=== PATIENT | female | born 1945 | race Caucasian/White ===

== ENCOUNTER 2021-11-28 14:01 | Emergency (ER) | payer MEDICARE, BC, SELFPAY ==
[2021-11-28 14:08] VITALS: BP 125/74; PULSE 103; RESP 16; TEMP 36.8; O2SAT 97; BMI 34.5
--- NOTE | 2021-11-28 14:15 | CTR_ITS ---
PROCEDURE INFORMATION: Exam: CT Maxillofacial Without Contrast Exam date and time: 11/28/2021 2:59 PM Age: 76 years old Clinical indication: Injury or trauma; Blunt trauma (contusions or hematomas); Cheek bone and forehead and nose and orbit/periorbital and lip/oral cavity; Left; Upper; Patient HX: Face first fall w injuries to L side of face TECHNIQUE: Imaging protocol: Computed tomography images of the face without contrast. Radiation optimization: All CT scans at this facility use at least one of these dose optimization techniques: automated exposure control; mA and/or kV adjustment per patient size (includes targeted exams where dose is matched to clinical indication); or iterative reconstruction. COMPARISON: CT head wo con* [id number] 11/28/2021 2:56 PM RADIATION DOSE METRICS: Total DLP (mGy-cm): 764.56 FINDINGS: Orbital cavities: Orbits are normal. Globes are unremarkable. Bones/joints: No acute fracture. Paranasal sinuses: Normal. No air-fluid levels. Soft tissues: Unremarkable. CT/CT facial bones wo con* [id number] IMPRESSION: No acute findings.
--- NOTE | 2021-11-28 14:15 | CTR_ITS ---
PROCEDURE INFORMATION: Exam: CT Cervical Spine Without Contrast Exam date and time: 11/28/2021 3:02 PM Age: 76 years old Clinical indication: Injury or trauma; Blunt trauma; Patient HX: Face first fall TECHNIQUE: Imaging protocol: Computed tomography images of the cervical spine without contrast. Radiation optimization: All CT scans at this facility use at least one of these dose optimization techniques: automated exposure control; mA and/or kV adjustment per patient size (includes targeted exams where dose is matched to clinical indication); or iterative reconstruction. COMPARISON: e+1 CT facial bones wo con* [id number] 11/28/2021 2:59 PM RADIATION DOSE METRICS: Total DLP (mGy-cm): 600.89 FINDINGS: Vertebrae: Grade 1 anterolisthesis of C4 relative to C5 of 3.4 mm is likely chronic. C2-C3: No significant disc protrusion. No severe spinal canal stenosis. No significant neural foraminal narrowing. C3-C4: No significant disc protrusion. No severe spinal canal stenosis. No significant neural foraminal narrowing. C4-C5: No significant disc protrusion. No severe spinal canal stenosis. No significant neural foraminal narrowing. C5-C6: No significant disc protrusion. No severe spinal canal stenosis. No significant neural foraminal narrowing. C6-C7: No significant disc protrusion. No severe spinal canal stenosis. No significant neural foraminal narrowing. C7-T1: No significant disc protrusion. No severe spinal canal stenosis. No significant neural foraminal narrowing. Soft tissues: Unremarkable. Lungs: Lung apices are normal. CT/CT cervical spin wo con* [id number] IMPRESSION: 1. No acute findings. 2. Grade 1 anterolisthesis of C4 relative to C5 of 3.4 mm is likely chronic.
--- NOTE | 2021-11-28 14:15 | CTR_ITS ---
PROCEDURE INFORMATION: Exam: CT Head Without Contrast Exam date and time: 11/28/2021 2:56 PM Age: 76 years old Clinical indication: Injury or trauma; Fall; Blunt trauma (contusions or hematomas); Consciousness not specified TECHNIQUE: Imaging protocol: Computed tomography of the head without contrast. Radiation optimization: All CT scans at this facility use at least one of these dose optimization techniques: automated exposure control; mA and/or kV adjustment per patient size (includes targeted exams where dose is matched to clinical indication); or iterative reconstruction. COMPARISON: No relevant prior studies available. RADIATION DOSE METRICS: Total DLP (mGy-cm): 812.6 FINDINGS: Brain: Normal. No hemorrhage. Unremarkable white matter. No mass effect. Cerebral ventricles: No ventriculomegaly. Paranasal sinuses: Visualized sinuses are unremarkable. No fluid levels. Mastoid air cells: Visualized mastoid air cells are well aerated. Bones/joints: Unremarkable. No acute fracture. Soft tissues: Unremarkable. CT/CT head wo con* [id number] IMPRESSION: No acute intracranial abnormality.
--- NOTE | 2021-11-28 14:16 | ED_ITS ---
HPI - Headache General: Chief Complaint: Fall Stated Complaint: FALL Time Seen by Provider: 11/28/21 14:07 History of Present Illness: 76-year-old female with history of A. fib on [place]ila presents due to head injury after mechanical fall. States she slipped on a curb due to the rain. Denies loss of consciousness. Denies any other focal area of pain. Denies focal numbness weakness tingling vision change hearing change or vertigo. Denies any prodrome prior to the fall. States she caught herself with her left hand but denies any pain in that area. Review of Systems Narrative: - CONSTITUTIONAL: Denies weight loss, fever and chills. - HEENT: Denies changes in vision and hearing. - RESPIRATORY: Denies SOB and cough. - CV: Denies palpitations and CP. - GI: Denies abdominal pain, nausea, vomiting and diarrhea. - : Denies dysuria and urinary frequency. - MSK: Denies myalgia and joint pain. - SKIN: Denies rash and pruritus. - NEUROLOGICAL: As above - PSYCHIATRIC: Denies suicidal ideation Physical Exam Narrative: EXAM NARRATIVE: - GENERAL: Alert and oriented x 3. No acute distress. Well-nourished. - EYES: EOMI. Anicteric. - HENT: Abrasion to left forehead and small abrasion to left upper lip. No laceration. No C-spine tenderness. Moist mucous membranes. No scleral icterus. No cervical lymphadenopathy. No hemotympanum, no nasal septal hematoma, no bony ligamentous laxity. - LUNGS: Clear to auscultation bilaterally. No accessory muscle use. Equal lung sounds bilaterally. No respiratory distress. - CARDIOVASCULAR: Regular rate and rhythm. No murmur. No JVD. - ABDOMEN: Soft, non-tender and non-distended. Negative CVA tenderness bilaterally, no rebound or guarding, negative Benton sign. No palpable masses. - EXTREMITIES: No edema. Non-tender. Small abrasion to dorsum of left hand but there is no tenderness. No snuffbox tenderness. Extremities neurovascularly intact. - SKIN: No rashes or lesions. Warm. - NEUROLOGIC: No meningismus or focal neurological deficits. CN II-XII grossly intact. - PSYCHIATRIC: Cooperative. Appropriate mood and affect. Course Vital Signs: Vital signs: Vital Signs Temperature 98.2 F 11/28/21 14:08 Pulse Rate 103 H 11/28/21 14:08 Respiratory Rate 16 11/28/21 14:08 Blood Pressure 125/74 11/28/21 14:08 Pulse Oximetry 97 11/28/21 14:08 MDM - Headache Medical Decision Making 76-year-old presents due to fall head injuries. Sustained abrasions over forehead and left lip but no laceration amenable to suture placement. Tetanus updated. CT scan of the head facial bones and C-spine do not reveal any intracranial hemorrhage fracture dislocation. Nonfocal neurologic exam. At this time I believe patient would be safe for discharge and outpatient follow- up. Return precautions provided. Plan was reviewed with the patient who expressed understanding. Questions answered. Patient will follow up with PCP. Patient discharged in stable condition. Lab Data Radiology Impressions Cervical Spine CT 11/28/21 14:15 IMPRESSION: 1. No acute findings. 2. Grade 1 anterolisthesis of C4 relative to C5 of 3.4 mm is likely chronic. Face CT 11/28/21 14:15 IMPRESSION: No acute findings. Head CT 11/28/21 14:15 IMPRESSION: No acute intracranial abnormality. Discharge Plan Discharge Patient Disposition: Home Clinical Impression: Head injury Condition: Stable Prescriptions: No Action cyclobenzaprine 10 mg tablet 10 mg PO BEDTIME 0RF hydrocodone-acetaminophen 5-325 mg tablet 1 tab PO Q4H PRN (Reason: Pain) 0RF diltiazem HCl 360 mg capsule,extended release 24hr 360 mg PO BEDTIME 0RF tramadol 50 mg tablet 0RF Tylenol Arthritis Pain 650 mg Tablet Extended Release 1,300 mg PO Q6H PRN (Reason: Pain) 0RF simvastatin 20 mg tablet 0RF Benadryl 25 mg Capsule 50 mg PO BEDTIME 0RF omeprazole 20 mg Capsule,Delayed Release(Dr/Ec) 20 mg PO QAM 0RF furosemide 20 mg tablet 0RF Ventolin HFA 90 mcg/actuation Hfa Aerosol Inhaler 2 puff INHALATION QID PRN (Reason: Shortness Of Breath) 0RF benazepril 10 mg tablet 0RF Symbicort 80-4.5 mcg/actuation HFA aerosol inhaler 2 puff INHALATION BID 0RF Vitamin D3 125 mcg (5,000 unit) Tablet 10,000 unit PO QAM 0RF Eliquis 5 mg tablet 0RF Discharge Orders: Discharge ED (Routine); Ordered 11/28/21 Ordered By: Jamie Graham Patient Instructions: Head Injury (ED), Opioid Safety Coding Level of Care Code ED [employer] for [employer]
[2021-11-28] MEDS: tetanus-diphtheria tox (adult) 0.5 mL SDV IM (14:44)
[2021-11-28] MEDS: acetaminophen 500 mg Tablet PO (15:12)
[2021-11-28 16:06] VITALS: BP 145/84; PULSE 92; RESP 20; O2SAT 95
== END 2021-11-28 16:07 | disposition home or self-care (01) ==
PROVIDERS: Emergency Provider Emergency Medicine; PCP Family Medicine
DX: S00.81XA Abrasion of other part of head, initial encounter (principal); W10.1XXA Fall (on)(from) sidewalk curb, initial encounter; I48.91 Unspecified atrial fibrillation; Z79.01 Long term (current) use of anticoagulants; Z23 Encounter for immunization
CPT/HCPCS: 70450; 70486; 72125; 90471; 90714; 99283

== ENCOUNTER → 2022-06-24 10:27 | Outpatient (BNVA) | payer MEDICARE, OTHER, SELFPAY | PROVIDERS: PCP Family Medicine; Referring Provider Dermatology; Visit Provider Specialist | DX: M19.011 Primary osteoarthritis, right shoulder (principal) | CPT/HCPCS: 20610; 73030; 99203; J1100; J2795; J3301 ==

== ENCOUNTER → 2022-10-01 09:13 | Outpatient (BNVA) | payer MEDICARE, OTHER, SELFPAY | PROVIDERS: PCP Family Medicine; Visit Provider Specialist | DX: M12.811 Other specific arthropathies, not elsewhere classified, right shoulder (principal); Z71.89 Other specified counseling | CPT/HCPCS: 20610; J1100; J2795; J3301 ==

== ENCOUNTER → 2022-12-31 09:25 | Outpatient (BNVA) | payer MEDICARE, OTHER, SELFPAY | PROVIDERS: PCP Family Medicine; Visit Provider Specialist | DX: M12.811 Other specific arthropathies, not elsewhere classified, right shoulder (principal); Z71.89 Other specified counseling | CPT/HCPCS: 20610; J1100; J2795; J3301 ==

== ENCOUNTER → 2023-04-08 09:22 | Outpatient (BNVA) | payer MEDICARE, OTHER, SELFPAY | PROVIDERS: PCP Family Medicine; Visit Provider Specialist | DX: M12.811 Other specific arthropathies, not elsewhere classified, right shoulder (principal); Z71.89 Other specified counseling | CPT/HCPCS: 20610; J1100; J2795; J3301 ==

== ENCOUNTER → 2023-07-30 10:27 | Outpatient (BNVA) | payer MEDICARE, OTHER, SELFPAY | PROVIDERS: PCP Family Medicine; Visit Provider Nurse Practitioner | DX: M12.811 Other specific arthropathies, not elsewhere classified, right shoulder (principal); Z71.89 Other specified counseling | CPT/HCPCS: 20610; J1100; J3301 ==

== ENCOUNTER → 2023-09-09 07:40 | Outpatient (BNVA) | payer MEDICARE, OTHER, SELFPAY | PROVIDERS: PCP Family Medicine; Visit Provider Podiatrist Foot & Ankle Surgery | DX: L60.0 Ingrowing nail (principal) | CPT/HCPCS: 11750; 99203 ==

== ENCOUNTER → 2023-10-07 08:01 | Outpatient (BNVA) | payer MEDICARE, OTHER, SELFPAY | PROVIDERS: PCP Family Medicine; Visit Provider Podiatrist Foot & Ankle Surgery | DX: L60.0 Ingrowing nail (principal) | CPT/HCPCS: 11750 ==

== ENCOUNTER → 2023-10-21 11:07 | Outpatient (BNVA) | payer MEDICARE, OTHER, SELFPAY | PROVIDERS: PCP Family Medicine; Visit Provider Podiatrist Foot & Ankle Surgery | DX: Z98.890 Other specified postprocedural states (principal) | CPT/HCPCS: 99213 ==

== ENCOUNTER → 2023-11-03 10:46 | Outpatient (BNVA) | payer MEDICARE, OTHER, SELFPAY | PROVIDERS: PCP Family Medicine; Visit Provider Nurse Practitioner | DX: M12.811 Other specific arthropathies, not elsewhere classified, right shoulder; Z71.89 Other specified counseling | CPT/HCPCS: 20610; J1100; J2795; J3301 ==

== ENCOUNTER → 2024-02-11 08:52 | Outpatient (BNVA) | payer MEDICARE, SELFPAY | PROVIDERS: PCP Family Medicine; Visit Provider Specialist | DX: M12.811 Other specific arthropathies, not elsewhere classified, right shoulder (principal); Z71.89 Other specified counseling | CPT/HCPCS: 20610; J1100; J2795; J3301 ==

== ENCOUNTER → 2024-02-14 11:27 | Outpatient (BNVA) | payer MEDICARE, SELFPAY | PROVIDERS: PCP Family Medicine; Visit Provider Nurse Practitioner | DX: M18.11 Unilateral primary osteoarthritis of first carpometacarpal joint, right hand | CPT/HCPCS: 73130; 99214 ==

== ENCOUNTER → 2024-05-26 08:58 | Outpatient (BNVA) | payer MEDICARE, OTHER, SELFPAY | PROVIDERS: PCP Family Medicine; Visit Provider Specialist | DX: M12.811 Other specific arthropathies, not elsewhere classified, right shoulder (principal); Z71.89 Other specified counseling | CPT/HCPCS: 20610; J1100; J2795; J3301 ==

== ENCOUNTER → 2024-07-10 13:12 | Outpatient (BNVA) | payer MEDICARE, OTHER, SELFPAY | PROVIDERS: PCP Family Medicine; Visit Provider Nurse Practitioner | DX: S52.125A Nondisplaced fracture of head of left radius, initial encounter for closed fracture; W01.0XXA Fall on same level from slipping, tripping and stumbling without subsequent striking against object, initial encounter | CPT/HCPCS: 73080 ==

== ENCOUNTER 2024-07-10 14:23 | Outpatient (CLI) | payer MEDICARE, OTHER, SELFPAY | END 2024-07-10 14:24 | disposition home or self-care (01) | LOC: SPT 14:24 | PROVIDERS: PCP Family Medicine; Visit Provider Nurse Practitioner | DX: Z46.89 Encounter for fitting and adjustment of other specified devices (principal); S52.122D Displaced fracture of head of left radius, subsequent encounter for closed fracture with routine healing; X58.XXXD Exposure to other specified factors, subsequent encounter | CPT/HCPCS: 97760; L3761 ==

== ENCOUNTER → 2024-07-24 13:54 | Outpatient (BNVA) | payer MEDICARE, OTHER, SELFPAY | PROVIDERS: PCP Family Medicine; Visit Provider Nurse Practitioner | DX: S52.125D Nondisplaced fracture of head of left radius, subsequent encounter for closed fracture with routine healing; X58.XXXD Exposure to other specified factors, subsequent encounter | CPT/HCPCS: 73080; 99024 ==

== ENCOUNTER → 2024-08-18 09:49 | Outpatient (BNVA) | payer MEDICARE, OTHER, SELFPAY | PROVIDERS: PCP Family Medicine; Visit Provider Nurse Practitioner | DX: S52.125D Nondisplaced fracture of head of left radius, subsequent encounter for closed fracture with routine healing (principal); M12.811 Other specific arthropathies, not elsewhere classified, right shoulder; X58.XXXD Exposure to other specified factors, subsequent encounter; Z71.89 Other specified counseling | CPT/HCPCS: 20610; 73030; 73080; 99213; J1100; J2795; J3301 ==

== ENCOUNTER → 2024-09-08 09:51 | Outpatient (BNVA) | payer MEDICARE, OTHER, SELFPAY | PROVIDERS: PCP Family Medicine; Visit Provider Nurse Practitioner | DX: S52.125D Nondisplaced fracture of head of left radius, subsequent encounter for closed fracture with routine healing (principal); Z71.89 Other specified counseling; X58.XXXD Exposure to other specified factors, subsequent encounter | CPT/HCPCS: 73080; 99213 ==

== ENCOUNTER → 2024-12-04 13:16 | Outpatient (BNVA) | payer MEDICARE, OTHER, SELFPAY | PROVIDERS: PCP Family Medicine; Visit Provider Nurse Practitioner | DX: M19.011 Primary osteoarthritis, right shoulder (principal) | CPT/HCPCS: 99214 ==

== ENCOUNTER 2024-12-12 09:38 | Outpatient (CLI) | payer MEDICARE, OTHER, SELFPAY ==
--- NOTE | 2024-12-12 10:00 | MR_ITS ---
WS: [id number] MRI RIGHT SHOULDER NONCONTRAST TECHNIQUE: Sagittal T2, coronal T1, T2 and proton density imaging. Axial gradient PDE imaging. CLINICAL INFORMATION: shoulder pain. COMPARISON: None. FINDINGS: Some images significant degraded by patient motion Advanced arthritis glenohumeral joint with near [id number] articulation. Subchondral cystic change and sclerosis. Advanced arthritis AC joint with marked narrowing of the subacromial space. Moderate downsloping of the acromion. Subacromial and subdeltoid fluid. High-grade tears with chronic thinning of the supraspinatus and infraspinatus. Detailed evaluation is limited due to significant motion artifact. Fatty atrophy muscle bellies supraspinatus and infraspinatus. Portions of the tendons retracted to the glenohumeral joint. Teres minor appears intact. Chronic partial tear or tendinopathy of the subscapularis tendon. Medial subluxation of the biceps tendon along the proximal bicipital groove. Small biceps tendon appears intact within the bicipital groove. Intra-articular biceps tendon appears intact. Flattening of the superior humeral head with crescentric shaped low signal compatible with avascular necrosis. Subcoracoid effusion. MR/MR shoulder RT wo con* [id number] IMPRESSION: Some images significantly degraded by patient motion. 1. 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 2. Advanced degenerative narrowing of the glenohumeral articulation with bone- on-bone and subchondral cystic change. 3. High-grade tears of the supraspinatus and infraspinatus with tendon retract ion and fatty atrophy of the muscle bellies. 4. Chronic partial tear with tendinopathy subscapularis tendon. 5. Medial subluxation/dislocation of the biceps tendon from the bicipital groo ve proximally. 6. Marked narrowing of the subacromial space. 7. Detailed evaluation is limited due to significant motion artifact
== END 2024-12-12 09:39 | disposition home or self-care (01) ==
LOC: RAD 09:42
PROVIDERS: PCP Family Medicine; Visit Provider Nurse Practitioner
DX: M19.011 Primary osteoarthritis, right shoulder (principal); S46.011A Strain of muscle(s) and tendon(s) of the rotator cuff of right shoulder, initial encounter; M62.511 Muscle wasting and atrophy, not elsewhere classified, right shoulder; S43.081A Other subluxation of right shoulder joint, initial encounter; R93.7 Abnormal findings on diagnostic imaging of other parts of musculoskeletal system; X58.XXXA Exposure to other specified factors, initial encounter; M67.813 Other specified disorders of tendon, right shoulder; S46.811A Strain of other muscles, fascia and tendons at shoulder and upper arm level, right arm, initial encounter
CPT/HCPCS: 73221

== ENCOUNTER → 2024-12-25 11:21 | Outpatient (BNVA) | payer MEDICARE, OTHER, SELFPAY | PROVIDERS: PCP Family Medicine; Visit Provider Nurse Practitioner | DX: M75.121 Complete rotator cuff tear or rupture of right shoulder, not specified as traumatic (principal); M19.011 Primary osteoarthritis, right shoulder | CPT/HCPCS: 99214 ==

== ENCOUNTER → 2025-03-20 13:16 | Outpatient (BNVA) | payer MEDICARE, OTHER, SELFPAY | PROVIDERS: PCP Family Medicine; Visit Provider Internal Medicine | DX: Z01.818 Encounter for other preprocedural examination (principal); I48.91 Unspecified atrial fibrillation; Z79.01 Long term (current) use of anticoagulants; I10 Essential (primary) hypertension; Z87.891 Personal history of nicotine dependence; R07.9 Chest pain, unspecified | CPT/HCPCS: 93005; 99204 ==

== ENCOUNTER → 2025-06-11 11:20 | Outpatient (BNVA) | payer MEDICARE, OTHER, SELFPAY | PROVIDERS: PCP Family Medicine; Visit Provider Nurse Practitioner | DX: Z01.818 Encounter for other preprocedural examination (principal) | CPT/HCPCS: 36415; 80053; 81001; 85025 ==